=== PATIENT | female | born 1965 | race Caucasian/White ===

== ENCOUNTER → 2017-03-31 | Outpatient (CLI) | payer BC ==
--- NOTE | 2017-03-31 12:02 | XR ---
EXAMINATION TYPE: XR elbow complete LT DATE OF EXAM: 03/31/2017 CLINICAL HISTORY: Left elbow pain. Lifting injury 2 weeks ago per patient. TECHNIQUE: Frontal, lateral and oblique images of the left elbow are obtained. COMPARISON: None FINDINGS: There is no acute fracture/dislocation evident in the left elbow. No abnormal fat pad sig ns are seen. The overlying soft tissue appears unremarkable. IMPRESSION: There is no acute fracture or dislocation in the left elbow. Unremarkable study.
== END | disposition home or self-care (01) ==
LOC: RADXRYALE 11:39
PROVIDERS: ATTEND Physician Assistant
DX: M25.522 Pain in left elbow (principal)

== ENCOUNTER → 2019-03-20 | Outpatient (CLI) | payer BC ==
--- NOTE | 2019-03-20 11:40 | XR ---
EXAMINATION TYPE: XR foot complete LT DATE OF EXAM: 03/20/2019 COMPARISON: NONE HISTORY: 53-year-old female left foot pain, plantar fasciitis TECHNIQUE: 3 views FINDINGS: Moderate sized plantar calcaneal spur. Achilles tendon is poorly delineated. No acute fracture, sublu xation, or dislocation. Os peroneum. A subchondral cyst within the first proximal phalangeal head. IMPRESSION: Moderate-sized plantar calcaneal spur may reflect underlying plantar fasciitis. Suggestion of mild de generative change at the first IP joint.
== END | disposition home or self-care (01) ==
LOC: RADXRYALE 09:17
PROVIDERS: ATTEND Family Medicine
DX: M77.32 Calcaneal spur, left foot (principal)

== ENCOUNTER → 2022-09-18 | Day surgery (SDC) | payer BC ==
[2022-09-15 15:26] VITALS: BMI 36.3
[~2022-09-18] MED LIST: LACTATED RINGERS 1,000 ML IV SCH; LIDOCAINE 1% (10MG/ML) FOR IV START INTRADERMA PRN; LIDOCAINE 2% INJ 20 MG/ML (2 ML VIAL) ONE; ONDANSETRON 4 MG/2 ML VIAL IVP PRN; PROPOFOL 10 MG/ML 20 ML VIAL IV ONE
[2022-09-18 12:00] VITALS: RESP 16; TEMP 97.4
--- NOTE | 2022-09-18 12:49 | P.PCN ---
Date of Procedure: 09/18/22 Procedure(s) Performed: BRIEF HISTORY: Patient is a 57-year-old pleasant white female scheduled for an elective colonoscopy as a part of screening for colon cancer. She does have family family history of colon cancer diagnosed in her mother at age 40. PROCEDURE PERFORMED: Colonoscopy. PREOPERATIVE DIAGNOSIS: Screening for colon cancer and family history of colon cancer. IV sedation per Anesthesia. PROCEDURE: After informed consent was obtained, the patient, was brought into the endoscopy unit. IV sedation was administered by Anesthesia under continuous monitoring. Digital rectal examination was normal. Initially the Olympus CF-160 flexible video colonoscope was then inserted in the rectum, gradually advanced into the cecum without any difficulty. Careful examination was performed as the scope was gradually being withdrawn. Ileocecal valve and the appendiceal orifice were visualized and appeared normal. Prep was excellent. Mucosa of the cecum, ascending colon, transverse colon, descending colon, sigmoid colon, and rectum appeared normal. Retroflexion was performed in the rectum and no lesions were seen. The patient tolerated the procedure well. IMPRESSION: Normal-appearing colon from rectum to cecum with no evidence of colorectal neoplasia. RECOMMENDATIONS: Findings of this examination were discussed with the patient as well as a family. She was advised to have a repeat screening colonoscopy every 5 years because of the family history of colon cancer
[2022-09-18 13:09] VITALS: BP 154/84; PULSE 73
== END ==
LOC: ORWHC2ENDO 10:50
PROVIDERS: ATTEND Internal Medicine Gastroenterology
DX: Z12.11 Encounter for screening for malignant neoplasm of colon (principal); G35 Multiple sclerosis; Z80.0 Family history of malignant neoplasm of digestive organs; Z88.1 Allergy status to other antibiotic agents; Z88.0 Allergy status to penicillin; Z79.899 Other long term (current) drug therapy
CPT/HCPCS: 45378; J2704; J2001; G0121

== ENCOUNTER 2024-05-06 11:10 | Emergency (ER) | payer BC ==
[2024-05-06 11:13] VITALS: TEMP 98.3
--- NOTE | 2024-05-06 11:24 | ED ---
General Adult HPI - General Chief complaint: Shortness of Breath Stated complaint: L side rib pain Time Seen by Provider: 05/06/24 11:22 Source: patient, RN notes reviewed Mode of arrival: ambulatory Limitations: no limitations - History of Present Illness Initial comments: 59-year-old female presenting with left rib pain x 2 days. Patient states she w as choking on a vitamin C gummy 2 days ago and her perform the Heimlich maneuver on her. Patient states choking resolved however has had a lingering left rib pain since the incident. Patient admits pain is worse with deep inspiration. Denies chest pain, abdominal pain. Tolerating orals well. States ibuprofen improves pain. - Related Data Home Medications Medication Instructions Recorded Confirmed Cholecalciferol [Vitamin D3 (25 25 mcg PO DAILY 09/15/22 09/18/22 Mcg = 1000 Iu)] Cyanocobalamin (Vitamin B-12) 1,000 mcg PO DAILY 09/15/22 09/18/22 [Vitamin B-12] Teriflunomide [Aubagio] 14 mg PO DAILY 09/15/22 09/18/22 Vitamin A 3,000 mcg PO DAILY 09/15/22 09/18/22 oxyBUTYnin chloride 5 mg PO DAILY 09/15/22 09/18/22 Allergies Allergy/AdvReac Type Severity Reaction Status Date / Time amoxicillin [From Augmentin] Allergy Rash/Hives Verified 09/18/22 11:57 ciprofloxacin [From Cipro] Allergy Rash/Hives Verified 09/18/22 11:57 clavulanic acid Allergy Rash/Hives Verified 09/18/22 11:57 [From Augmentin] Review of Systems ROS Statement: Those systems with pertinent positive or pertinent negative responses have been documented in the HPI. ROS Other: All systems not noted in ROS Statement are negative. Past Medical History Past Medical History: Hearing Disorder / Deafness, Neurologic Disorder Additional Past Medical History / Comment(s): MULTIPLE SCLEROSIS ," MORE FREQUENT URINATION ", HARD OF HEARING History of Any Multi-Drug Resistant Organisms: None Reported Past Surgical History: Section Additional Past Surgical History / Comment(s): C SECTION X3, COLONOSCOPY Past Anesthesia/Blood Transfusion Reactions: No Reported Reaction Past Psychological History: No Psychological Hx Reported Smoking Status: Never smoker Past Alcohol Use History: Rare Past Drug Use History: None Reported - Past Family History Mother Family Medical History: Cancer Additional Family Medical History / Comment(s): COLON CANCER AND LUNG CANCER General Exam Limitations: no limitations General appearance: alert, in no apparent distress Head exam: Present: atraumatic, normocephalic, normal inspection Neck exam: Present: normal inspection. Absent: tenderness, meningismus, lymphadenopathy Respiratory exam: Present: normal lung sounds bilaterally, chest wall tenderness (Left lateral rib tenderness, no overlying skin changes). Absent: respiratory distress, wheezes, rales, rhonchi, stridor Cardiovascular Exam: Present: regular rate, normal rhythm, normal heart sounds. Absent: systolic murmur, diastolic murmur, rubs, gallop, clicks Neurological exam: Present: alert, oriented X3 Psychiatric exam: Present: normal affect, normal mood Skin exam: Present: warm, dry, intact, normal color. Absent: rash Course Vital Signs 05/06/24 05/06/24 05/06/24 11:11 11:25 12:05 Temperature 98.3 F Pulse Rate 65 62 61 Respiratory 18 16 16 Rate Blood Pressure 157/94 148/85 154/84 O2 Sat by Pulse 98 96 99 Oximetry Medical Decision Making - Medical Decision Making Was pt. sent in by a medical professional or institution (, PA, GAS STATION ATTENDANT, urgent care, hospital, or penitentiary...) When possible be specific @ -No Did you speak to anyone other than the patient for history (EMS, parent, family, police, friend...)? What history was obtained from this source @ -No Did you review nursing and triage notes (agree or disagree)? Why? @ -I reviewed and agree with nursing and triage notes Were old charts reviewed (outside hosp., previous admission, EMS record, old EKG, old radiological studies, urgent care reports/EKG's, penitentiary records)? Report findings @ -No old charts were reviewed Differential Diagnosis (chest pain, altered mental status, abdominal pain women, abdominal pain men, vaginal bleeding, weakness, fever, dyspnea, syncope, headache, dizziness, GI bleed, back pain, seizure, CVA, palpatations, mental health, musculoskeletal)? @ -Differential Musculoskeletal Muscular strain, contusion, ligament sprain, fracture, arthritis, septic arthritis, bursitis, cellulitis, muscle spasm, nerve compression, DVT, arterial occlusion, herpes zoster, electrolyte abnormality, tumor.... This is not meant to be in all inclusive list EKG interpreted by me (3pts min.). @ -None X-rays interpreted by me (1pt min.). @ -X-ray reveals suspected nondisplaced anterior left eighth rib fracture, no pneumothorax evident, minimal atelectasis may be at left lung base CT interpreted by me (1pt min.). @ -None done U/S interpreted by me (1pt. min.). @ -None done What testing was considered but not performed or refused? (CT, X-rays, U/S, labs)? Why? @ -None What meds were considered but not given or refused? Why? @ -Patient declined pain medication Did you discuss the management of the patient with other professionals ( professionals i.e. , PA, GAS STATION ATTENDANT, lab, RT, psych nurse, licensed social worker, forest worker, teacher, executive vice president and chief financial officer, keycase assembler)? Give summary @ -No Was smoking cessation discussed for >3mins.? @ -No Was critical care preformed (if so, how long)? @ -No Were there social determinants of health that impacted care today? How? (Homelessness, low income, unemployed, alcoholism, drug addiction, transportation, low edu. Level, literacy, decrease access to med. care, alf, rehab)? @ -No Was there de-escalation of care discussed even if they declined (Discuss DNR or withdrawal of care, Hospice)? DNR status @ -No What co-morbidities impacted this encounter? (DM, HTN, Smoking, COPD, CAD, Cancer, CVA, ARF, Chemo, Hep., AIDS, mental health diagnosis, sleep apnea, morbid obesity)? @ -None Was patient admitted / discharged? Hospital course, mention meds given and route, prescriptions, significant lab abnormalities, going to OR and other pertinent info. @ -Discharge. This is a 59-year-old female presenting with left rib pain x 2 days status post receiving the Heimlich maneuver by . Vital signs within acceptable limits. There is reproducible tenderness to left lateral ribs, heart and lungs clear to auscultation bilaterally. Chest x-ray revealed suspected nondisplaced anterior left eighth rib fracture, no pneumothorax evident. Discussed diagnosis of left rib fracture with patient. Patient was given incentive spirometer. Pain control provided. Return precautions discussed as well as supportive care and patient is agreeable to plan. Case was discussed with my ED attending Dr. Aragon. Discharged in stable condition. Undiagnosed new problem with uncertain prognosis? @ -No Drug Therapy requiring intensive monitoring for toxicity (Heparin, Nitro, Insulin, Cardizem)? @ -No Were any procedures done? @ -No Diagnosis/symptom? @ -Left nondisplaced rib fracture Acute, or Chronic, or Acute on Chronic? @ -Acute Uncomplicated (without systemic symptoms) or Complicated (systemic symptoms)? @ -Uncomplicated Side effects of treatment? @ -No Exacerbation, Progression, or Severe Exacerbation? @ -No Poses a threat to life or bodily function? How? (Chest pain, USA, LA, pneumonia, PE, COPD, DKA, ARF, appy, cholecystitis, CVA, Diverticulitis, Homicidal, Suicidal, threat to staff... and all critical care pts) @ -No Disposition Clinical Impression: Left rib fracture Disposition: HOME SELF-CARE Condition: Stable Instructions (If sedation given, give patient instructions): Rib Fracture (ED) Additional Instructions: Use incentive spirometer 10 times hourly while awake for 1 week. Take ibuprofen, Robaxin, and lidocaine patches as needed for pain. Please return to the Emergency Department if symptoms worsen or any other concerns. Is patient prescribed a controlled substance at d/c from ED?: No Referrals: Jerel Lozano DO [Primary Care Provider] - 1-2 days Time of Disposition: 12:22
[2024-05-06 11:26] VITALS: RESP 16
--- NOTE | 2024-05-06 12:07 | XR ---
EXAMINATION TYPE: XR ribs LT w pa chest xray DATE OF EXAM: 05/06/2024 11:51 AM COMPARISON: None. CLINICAL INDICATION: Female, 59 years old with history of left rib pain, Heimlich maneuver 2 days cornelius or TECHNIQUE: 2 view(s) obtained ribs. Exam is supplemented with frontal chest FINDINGS: Heart size is normal. Some minimal atelectasis may be at the left base. Lungs otherwise appear clear. Pulmonary vasculature is normal. No displaced rib fractures are identified. May be a nondisplaced anterior eighth rib fracture correla te with location of patient's pain. No pneumothorax is evident. IMPRESSION: 1. Suspected nondisplaced anterior left eighth rib fracture. 2. No pneumothorax evident. 3. Minimal atelectasis may be at the left lung base. [facility], , 05/06/2024 12:04 PM
[2024-05-06 12:44] VITALS: BP 159/80; PULSE 68
== END 2024-05-06 13:32 | disposition home or self-care (01) ==
LOC: EC 11:10
DX: S22.32XA Fracture of one rib, left side, initial encounter for closed fracture (principal); Z88.0 Allergy status to penicillin; Z88.1 Allergy status to other antibiotic agents; X58.XXXA Exposure to other specified factors, initial encounter
CPT/HCPCS: 99284